=== PATIENT | male | born 1950 | race Caucasian/White ===

== ENCOUNTER → 2017-08-14 | Outpatient (CLI) | payer OTHER, BC ==
[~2017-08-14] MED LIST: HYTRIN5 MG PO; LO-DOSE ASPIRIN81 M1 PO; LOTENSIN HCT1 TABLE2 PO
== END | disposition home or self-care (01) ==
LOC: NUC 10:00
DX: M47.892 Other spondylosis, cervical region (principal); M19.072 Primary osteoarthritis, left ankle and foot; M19.071 Primary osteoarthritis, right ankle and foot; Z47.1 Aftercare following joint replacement surgery; Z96.641 Presence of right artificial hip joint
CPT/HCPCS: 73502; 78315; A9503

== ENCOUNTER → 2017-08-20 | Outpatient (CLI) | payer OTHER, BC | END | disposition home or self-care (01) | LOC: NUC 06:21 | DX: M25.551 Pain in right hip (principal); Z96.641 Presence of right artificial hip joint | CPT/HCPCS: 78102; 78805; 78999; A9541; A9570 ==